=== PATIENT | female | born 2000 | race African-American/Black ===

== ENCOUNTER 2024-11-09 14:41 | Emergency (ER) | payer MEDICAID, OTHER ==
[~2024-11-09] VITALS: Ht 157.5 cm; Wt 84.7 kg
[2024-11-09 14:51] VITALS: O2SAT 100
[2024-11-09 18:55] VITALS: BP 110/69; PULSE 75; RESP 18; TEMP 36.7; O2SAT 100
== END 2024-11-09 18:55 | disposition home or self-care (01) ==
LOC: ER 14:41
DX: S09.8XXA Other specified injuries of head, initial encounter (principal); W19.XXXA Unspecified fall, initial encounter; Y93.89 Activity, other specified; Y92.89 Other specified places as the place of occurrence of the external cause; Y99.8 Other external cause status
CPT/HCPCS: 99282; Z7610; 99281